=== PATIENT | female | born 1980 | race Caucasian/White ===

== ENCOUNTER 2019-12-15 18:18 | Emergency (ER) | payer OTHER ==
[2019-12-15 18:31] VITALS: RESP 18; TEMP 98.8
--- NOTE | 2019-12-15 20:04 | ED ---
General Adult HPI - General Chief complaint: GI Bleed Stated complaint: abd pain/rectal bleeding Time Seen by Provider: 12/15/19 19:38 Source: patient, RN notes reviewed Mode of arrival: ambulatory Limitations: no limitations - History of Present Illness Initial comments: 39-year-old female presents to the emergency room for a chief complaint of rectal bleeding. Patient reports that for the past 2-3 days she has had a couple episodes of bright red blood in the toilet bowl after having a bowel movement. Patient reports about a week ago she started to have burning in her rectum with bowel movements. Patient does report she has a hemorrhoid. Patient denies any associated abdominal pain whatsoever. She does admit to slight nausea and did have one episode of diarrhea today. She does not have any fevers or chills. Patient has no other complaints at this time including shortness of breath, chest pain, abdominal pain, vomiting, headache, or visual changes. - Related Data Home Medications Medication Instructions Recorded Confirmed Omeprazole 20 mg PO BID 11/15/15 12/15/19 Allergies Allergy/AdvReac Type Severity Reaction Status Date / Time No Known Allergies Allergy Verified 12/15/19 20:30 Review of Systems ROS Statement: Those systems with pertinent positive or pertinent negative responses have been documented in the HPI. ROS Other: All systems not noted in ROS Statement are negative. Past Medical History Past Medical History: GERD/Reflux Additional Past Medical History / Comment(s): chronic back pain, carpal tunnel History of Any Multi-Drug Resistant Organisms: None Reported Past Surgical History: Section, Cholecystectomy Additional Past Surgical History / Comment(s): rt hip Past Anesthesia/Blood Transfusion Reactions: No Reported Reaction Past Psychological History: No Psychological Hx Reported Smoking Status: Never smoker Past Alcohol Use History: Occasional Past Drug Use History: Marijuana - Past Family History Mother Family Medical History: No Reported History Father Family Medical History: No Reported History General Exam Limitations: no limitations General appearance: alert, in no apparent distress Head exam: Present: atraumatic, normocephalic, normal inspection Eye exam: Present: normal appearance, PERRL, EOMI. Absent: scleral icterus, conjunctival injection, periorbital swelling ENT exam: Present: normal exam, mucous membranes moist Neck exam: Present: normal inspection, full ROM. Absent: tenderness, meningismus, lymphadenopathy Respiratory exam: Present: normal lung sounds bilaterally. Absent: respiratory distress, wheezes, rales, rhonchi, stridor Cardiovascular Exam: Present: regular rate, normal rhythm, normal heart sounds. Absent: systolic murmur, diastolic murmur, rubs, gallop, clicks GI/Abdominal exam: Present: soft, normal bowel sounds. Absent: distended, tenderness (No abdominal tenderness), guarding, rebound, rigid Rectal exam: Present: hemorrhoids (Nonthrombosed hemorrhoids noted). Absent: bloody stool Course Vital Signs 12/15/19 18:27 Temperature 98.8 F Pulse Rate 86 Respiratory 18 Rate Blood Pressure 126/89 O2 Sat by Pulse 97 Oximetry Medical Decision Making - Medical Decision Making Vitals are stable. CBC unremarkable. Leukocytosis likely reactive. CMP is unremarkable. Urinalysis does not show any obvious evidence of infection. Occult blood is positive. Patient does not have any abdominal tenderness. Describes the blood as bright red. At this time patient is stable. I do recommend she follow up with GI for colonoscopy and further management however at this time does not require inpatient management. Patient is agreeable to this. She will return for any worsening symptoms which were discussed with her. - Lab Data Result diagrams: 12/15/19 20:10 12/15/19 20:10 Lab Results 12/15/19 12/15/19 12/15/19 Range/Units 20:10 20:10 20:10 WBC 12.0 H (3.8-10.6) k/uL RBC 5.15 (3.80-5.40) m/uL Hgb 14.9 (11.4-16.0) gm/dL Hct 44.6 (34.0-46.0) % MCV 86.5 (80.0-100.0) fL MCH 28.9 (25.0-35.0) pg MCHC 33.3 (31.0-37.0) g/dL RDW 12.9 (11.5-15.5) % Plt Count 304 (150-450) k/uL Neutrophils % 70 % Lymphocytes % 20 % Monocytes % 5 % Eosinophils % 2 % Basophils % 1 % Neutrophils # 8.4 H (1.3-7.7) k/uL Lymphocytes # 2.4 (1.0-4.8) k/uL Monocytes # 0.6 (0-1.0) k/uL Eosinophils # 0.3 (0-0.7) k/uL Basophils # 0.1 (0-0.2) k/uL Sodium (137-145) mmol/L Potassium (3.5-5.1) mmol/L Chloride (98-107) mmol/L Carbon Dioxide (22-30) mmol/L Anion Gap mmol/L BUN (7-17) mg/dL Creatinine (0.52-1.04) mg/dL Est GFR (CKD-EPI)AfAm (>60 ml/min/1.73 sqM) Est GFR (CKD-EPI)NonAf (>60 ml/min/1.73 sqM) Glucose (74-99) mg/dL Calcium (8.4-10.2) mg/dL Total Bilirubin (0.2-1.3) mg/dL AST (14-36) U/L ALT (4-34) U/L Alkaline Phosphatase (38-126) U/L Total Protein (6.3-8.2) g/dL Albumin (3.5-5.0) g/dL Urine Color Yellow Urine Appearance Clear (Clear) Urine pH 5.5 (5.0-8.0) Ur Specific [place] 1.027 (1.001-1.035) Urine Protein Negative (Negative) Urine Glucose (UA) Negative (Negative) Urine Ketones Negative (Negative) Urine Blood Trace H (Negative) Urine Nitrite Negative (Negative) Urine Bilirubin Negative (Negative) Urine Urobilinogen <2.0 (<2.0) mg/dL Ur Leukocyte Esterase Negative (Negative) Urine RBC 1 (0-5) /hpf Urine WBC 2 (0-5) /hpf Ur Squamous Epith Cells 3 (0-4) /hpf Urine Bacteria Rare H (None) /hpf Urine Mucus Many H (None) /hpf Urine HCG, Qual Not Detected (Not Detectd) Stool Occult Blood (Negative) 12/15/19 12/15/19 Range/Units 20:10 20:10 WBC (3.8-10.6) k/uL RBC (3.80-5.40) m/uL Hgb (11.4-16.0) gm/dL Hct (34.0-46.0) % MCV (80.0-100.0) fL MCH (25.0-35.0) pg MCHC (31.0-37.0) g/dL RDW (11.5-15.5) % Plt Count (150-450) k/uL Neutrophils % % Lymphocytes % % Monocytes % % Eosinophils % % Basophils % % Neutrophils # (1.3-7.7) k/uL Lymphocytes # (1.0-4.8) k/uL Monocytes # (0-1.0) k/uL Eosinophils # (0-0.7) k/uL Basophils # (0-0.2) k/uL Sodium 137 (137-145) mmol/L Potassium 4.8 (3.5-5.1) mmol/L Chloride 105 (98-107) mmol/L Carbon Dioxide 29 (22-30) mmol/L Anion Gap 3 mmol/L BUN 14 (7-17) mg/dL Creatinine 0.63 (0.52-1.04) mg/dL Est GFR (CKD-EPI)AfAm >90 (>60 ml/min/1.73 sqM) Est GFR (CKD-EPI)NonAf >90 (>60 ml/min/1.73 sqM) Glucose 97 (74-99) mg/dL Calcium 8.6 (8.4-10.2) mg/dL Total Bilirubin 0.7 (0.2-1.3) mg/dL AST 26 (14-36) U/L ALT 14 (4-34) U/L Alkaline Phosphatase 51 (38-126) U/L Total Protein 5.8 L (6.3-8.2) g/dL Albumin 3.4 L (3.5-5.0) g/dL Urine Color Urine Appearance (Clear) Urine pH (5.0-8.0) Ur Specific [place] (1.001-1.035) Urine Protein (Negative) Urine Glucose (UA) (Negative) Urine Ketones (Negative) Urine Blood (Negative) Urine Nitrite (Negative) Urine Bilirubin (Negative) Urine Urobilinogen (<2.0) mg/dL Ur Leukocyte Esterase (Negative) Urine RBC (0-5) /hpf Urine WBC (0-5) /hpf Ur Squamous Epith Cells (0-4) /hpf Urine Bacteria (None) /hpf Urine Mucus (None) /hpf Urine HCG, Qual (Not Detectd) Stool Occult Blood Positive H (Negative) Disposition Clinical Impression: Rectal bleeding Narrative: stable vitals and hemoglobin Disposition: HOME SELF-CARE Condition: Good Instructions (If sedation given, give patient instructions): Gastrointestinal Bleeding (ED) Additional Instructions: Please follow-up with your doctor in one to 2 days. Follow up with GI as well as you may require a colonoscopy. Return to the emergency room for worsening symptoms such as severe worsening bleeding or symptoms such as lightheadedness or passing out. Is patient prescribed a controlled substance at d/c from ED?: No Referrals: Srinivasa Tapia MD [Primary Care Provider] - 1-2 days Aly Hale MD [STAFF PHYSICIAN] - 1-2 days Time of Disposition: 21:20
[2019-12-15 20:34] LABS: Basophils # (A) 0.1 k/uL (0-0.2); Basophils % (A) 1 %; Eosinophils # (A) 0.3 k/uL (0-0.7); Eosinophils % (A) 2 %; HCT 44.6 % (34.0-46.0); HGB 14.9 gm/dL (11.4-16.0); Lymphocytes # (A) 2.4 k/uL (1.0-4.8); Lymphocytes % (A) 20 %; MCH 28.9 pg (25.0-35.0); MCHC 33.3 g/dL (31.0-37.0); MCV 86.5 fL (80.0-100.0); Mean Platelet Volume 6.8; Monocytes # (A) 0.6 k/uL (0-1.0); Monocytes % (A) 5 %; Neutrophils # (A) 8.4 k/uL (1.3-7.7); Neutrophils % (A) 70 %; Platelet Count 304 k/uL (150-450); RBC 5.15 m/uL (3.80-5.40); RDW 12.9 % (11.5-15.5)
[2019-12-15 20:35] LABS: Appearance,Urine Clear (Clear); Bacteria,Urine Rare /hpf; Bilirubin,Urine Negative (Negative); Blood,Urine Trace (Negative); Color,Urine Yellow; Glucose,Urine (UA) Negative (Negative); Ketones,Urine Negative (Negative); Leukocyte Esterase,Urine Negative (Negative); Mucus,Urine Many /hpf; Nitrite,Urine Negative (Negative); PH, Urine 5.5 (5.0-8.0); Protein,Urine Negative (Negative); RBC,Urine 1 /hpf (0-5); Specific Gravity,Urine 1.027 (1.001-1.035); Squamous Epithelial Cell,Urine 3 /hpf (0-4); Urobilinogen,Urine <2.0 mg/dL (<2.0); WBC,Urine 2 /hpf (0-5)
[2019-12-15 20:40] LABS: ALT 14 U/L (4-34); AST 26 U/L (14-36); African American GFR (CKD) >90 (>60 ml/min/1.73 sqM); Albumin 3.4 g/dL (3.5-5.0); Alkaline Phosphatase 51 U/L (38-126); Anion Gap 3 mmol/L; Blood Urea Nitrogen 14 mg/dL (7-17); Calcium 8.6 mg/dL (8.4-10.2); Carbon Dioxide 29 mmol/L (22-30); Chloride 105 mmol/L (98-107); Glucose 97 mg/dL (74-99); Non-African American GFR(CKD) >90 (>60 ml/min/1.73 sqM); Potassium 4.8 mmol/L (3.5-5.1); Sodium 137 mmol/L (137-145); Total Bilirubin 0.7 mg/dL (0.2-1.3); Total Protein 5.8 g/dL (6.3-8.2)
[2019-12-15 21:38] VITALS: BP 124/90; PULSE 72
== END 2019-12-15 21:39 | disposition home or self-care (01) ==
LOC: EC 18:18
DX: K62.5 Hemorrhage of anus and rectum (principal); K21.9 Gastro-esophageal reflux disease without esophagitis; Z79.899 Other long term (current) drug therapy
CPT/HCPCS: 36415; 80053; 81001; 81025; 82272; 85025; 99283

== ENCOUNTER 2020-02-02 10:23 | Day surgery (SDC) | payer OTHER ==
[2020-01-28 11:50] VITALS: BMI 46.5
[~2020-02-02 10:23] MED LIST: LACTATED RINGERS 1,000 ML IV SCH
[2020-02-02 10:55] VITALS: RESP 16; TEMP 97.3
[2020-02-02] MEDS ORDERED: LIDOCAINE 1% (10MG/ML) FOR IV START INTRADERMA ONE (10:55)
[2020-02-02] MEDS ORDERED: PROPOFOL 10 MG/ML 20 ML VIAL IV ONE (11:19)
--- NOTE | 2020-02-02 11:49 | P.PCN ---
Date of Procedure: 02/02/20 Description of Procedure: BRIEF HISTORY: Patient is a 39-year-old female presenting for outpatient colonoscopy for evaluation of rectal bleed. The patient reports intermittent rectal bleeding in the past but had 7 days of straight bleeding. She denies abdominal pain or change in bowel habits. No family history of colon cancer. PROCEDURE PERFORMED: Colonoscopy. PREOPERATIVE DIAGNOSIS: Rectal bleed, no prior colonoscopy. ESTIMATED BLOOD LOSS: Minimal. IV sedation per Anesthesia. PROCEDURE: After informed consent was obtained, the patient, was brought into the endoscopy unit. IV sedation was administered by Anesthesia under continuous monitoring. Digital rectal examination was normal. Initially the Olympus CF-190 flexible video colonoscope was then inserted in the rectum, gradually advanced into the cecum without any difficulty. Careful examination was performed as the scope was gradually being withdrawn. Ileocecal valve and the appendiceal orifice were visualized and appeared normal. Prep was excellent. Mucosa of the cecum, ascending colon, transverse colon, descending colon, sigmoid colon, and rectum appeared normal. Retroflexion was performed in the rectum and no lesions were seen, low-grade internal hemorrhoids noted. The patient tolerated the procedure well. IMPRESSION: Normal-appearing colon from rectum to cecum. Internal hemorrhoids. RECOMMENDATIONS: Findings of this examination were discussed with the patient. Okay to resume diet. Okay to resume medications. Recommendation is for local hemorrhoidal care if further bleeding including sitz baths, Tucks pads, and topical treatment with Preparation H or other formulation.
[2020-02-02 12:10] VITALS: BP 115/54; PULSE 67
== END 2020-02-02 12:50 ==
LOC: ORWHC2ENDO 10:23
PROVIDERS: ATTEND Internal Medicine
DX: K64.8 Other hemorrhoids (principal); K62.5 Hemorrhage of anus and rectum
CPT/HCPCS: 81025; 45378; J2704

== ENCOUNTER 2020-02-04 10:55 | Emergency (ER) | payer OTHER ==
[2020-02-04 11:06] VITALS: RESP 18
--- NOTE | 2020-02-04 12:42 | ED ---
Upper Extremity HPI - General Chief Complaint: Extremity Injury, Upper Stated Complaint: L Arm Pain Time Seen by Provider: 02/04/20 11:09 Source: patient Mode of arrival: ambulatory Limitations: no limitations - History of Present Illness Initial Comments: 39-year-old feel presenting today for chief complaint of bruising pain near plasma donation site. Patient states she has had bicep pain just proximal to where she had donated plasma. Patient states she's extensive bruising she states this never happened before. She denies redness fevers. Patient denies any direct traumas or injury patient denies history of blood clots denies additional complaints denies chest pain source of breath. Patient appears well nontoxic distress on arrival. - Related Data Home Medications Medication Instructions Recorded Confirmed Omeprazole 20 mg PO DAILY PRN 11/15/15 02/04/20 Cannabidiol (Cbd) [Epidiolex] 1 dose PO DAILY PRN 01/28/20 02/04/20 Cetirizine HCl [Zyrtec] 10 mg PO DAILY 01/28/20 02/04/20 Allergies Allergy/AdvReac Type Severity Reaction Status Date / Time No Known Allergies Allergy Verified 02/04/20 11:39 Review of Systems ROS Statement: Those systems with pertinent positive or pertinent negative responses have been documented in the HPI. ROS Other: All systems not noted in ROS Statement are negative. Past Medical History Past Medical History: GERD/Reflux, GI Bleed Additional Past Medical History / Comment(s): chronic back pain, carpal tunnel, itchiness of skin recently History of Any Multi-Drug Resistant Organisms: None Reported Past Surgical History: Section, Cholecystectomy, Orthopedic Surgery, Tubal Ligation Additional Past Surgical History / Comment(s): rt hip cyst and part of hip bone removed. C/S-3 Past Anesthesia/Blood Transfusion Reactions: No Reported Reaction, Motion Sickness Additional Past Anesthesia/Blood Transfusion Reaction / Comment(s): 2nd C/S difficulty breathing had epidural Past Psychological History: Anxiety Smoking Status: Vaper Past Alcohol Use History: Occasional Past Drug Use History: Marijuana - Past Family History Mother Family Medical History: No Reported History Father Family Medical History: No Reported History General Exam - General Exam Comments Initial Comments: General: The patient is awake and alert, in no distress, and does not appear acutely ill. Eye: Pupils are equal, round and reactive to light, extra-ocular movements are intact. No nystagmus. There is normal conjunctiva bilaterally. No signs of icterus. Cardiovascular: There is a regular rate and rhythm. No murmur, rub or gallop is appreciated. Respiratory: Lungs are clear to auscultation, respirations are non-labored, breath sounds are equal. No wheezes, stridor, rales, or rhonchi. Musculoskeletal: Normal ROM, no tenderness. Strength 5/5. Sensation intact. Radial pulses equal bilaterally 2+. Neurological: A&O x 3. CN II-XII intact grossly, There are no obvious motor or sensory deficits. Coordination appears grossly intact. Speech is normal. Skin: Skin is warm and dry and no rashes. ecchymosis roughly 10x 5cm irregular shape on the left popliteal fossa medially, some tenderness and palpable lump slightly more proximal. not rope like, no redness. tender to touch./ Psychiatric: Cooperative, appropriate mood & affect, normal judgment. Limitations: no limitations Course Vital Signs 02/04/20 10:59 Temperature 98.3 F Pulse Rate 68 Respiratory 18 Rate Blood Pressure 126/76 O2 Sat by Pulse 98 Oximetry Medical Decision Making - Medical Decision Making US (-) DVT. exam consistent with ecchymosis. no injury. pt may appply warm compresses and f/u with pcp. patient agreeable to care plan and discharge. Disposition Clinical Impression: Left arm pain, Left arm swelling, Ecchymosis Disposition: HOME SELF-CARE Condition: Good Instructions (If sedation given, give patient instructions): Ecchymosis (ED) Additional Instructions: Please use medication as discussed. Please follow-up with family doctor in the next 2 days. Please return to emergency room if the symptoms increase or worsen or for any other concerns. Is patient prescribed a controlled substance at d/c from ED?: No Referrals: Srinivasa Tapia MD [Primary Care Provider] - 1-2 days Time of Disposition: 12:42
--- NOTE | 2020-02-04 12:44 | US ---
EXAMINATION TYPE: US venous doppler duplex UE LT DATE OF EXAM: 02/04/2020 COMPARISON: NONE CLINICAL HISTORY: 39-year-old female swelling pain, mid bicep. Patient stated had plasma drawn left b rachial fossa 01/31/20 and c/o left upper arm pain anterior location SIDE PERFORMED: left TECHNIQUE: Grayscale, color doppler, spectral doppler imaging performed of the deep veins of the upp er extremities. Findings: Left Arm: There is normal flow, compressibility and vascular waveforms. Negative for DVT. Negative for SVT. No fluid collection is observed at left brachial fossa. IMPRESSION: No evidence for DVT within the left upper extremity. No abnormal fluid collection identified within the left brachial fossa.
[2020-02-04 12:57] VITALS: BP 120/70; PULSE 70; TEMP 98.2
== END 2020-02-04 12:55 | disposition home or self-care (01) ==
LOC: EC 10:55
DX: S40.022A Contusion of left upper arm, initial encounter (principal); K21.9 Gastro-esophageal reflux disease without esophagitis; F17.290 Nicotine dependence, other tobacco product, uncomplicated; Z79.899 Other long term (current) drug therapy; X58.XXXA Exposure to other specified factors, initial encounter
CPT/HCPCS: 99283

== ENCOUNTER 2020-04-09 16:43 | Emergency (ER) | payer OTHER ==
[2020-04-09] MEDS ORDERED: HYDROmorphone 0.5 MG/0.5 ML SYRINGE IVP STA (17:24)
[2020-04-09] MEDS ORDERED: SODIUM CHLORIDE 0.9% 1,000 ML IV STA (17:24)
[2020-04-09] MEDS ORDERED: ONDANSETRON 4 MG/2 ML VIAL IVP STA (17:24)
[2020-04-09] MEDS ORDERED: SODIUM CHLORIDE 0.9% 500 ML 500 ML IV STA (17:24)
--- NOTE | 2020-04-09 17:50 | ED ---
Abdominal Pain HPI - General Chief Complaint: Abdominal Pain Stated Complaint: Abd pain Time Seen by Provider: 04/09/20 17:10 Source: patient, RN notes reviewed Mode of arrival: ambulatory Limitations: no limitations - History of Present Illness Initial Comments: 39-year-old female presents emergency Department chief complaint abdominal pain. Patient states that she had some pain in the right lower quadrant last night but has worsened today and radiates across her abdomen today. Patient states is worse when she sits forward or moves. Patient denies any back pain denies chest pain shortness breath or chills dysuria hematuria diarrhea constipation. Patient had a prior cholecystectomy years ago. Patient states that she is stressed medication were no relief. - Related Data Home Medications Medication Instructions Recorded Confirmed Omeprazole 20 mg PO DAILY PRN 11/15/15 04/09/20 Cetirizine HCl [Zyrtec] 10 mg PO DAILY 01/28/20 04/09/20 busPIRone HCL [Buspar] 7.5 mg PO BID PRN 04/09/20 04/09/20 Previous Rx's Medication Instructions Recorded Cephalexin [Keflex] 500 mg PO Q8HR #21 cap 04/09/20 Ondansetron Odt [Zofran Odt] 4 mg PO Q8HR PRN #10 tab 04/09/20 Allergies Allergy/AdvReac Type Severity Reaction Status Date / Time No Known Allergies Allergy Verified 04/09/20 16:47 Review of Systems ROS Statement: Those systems with pertinent positive or pertinent negative responses have been documented in the HPI. ROS Other: All systems not noted in ROS Statement are negative. Past Medical History Past Medical History: GERD/Reflux, GI Bleed Additional Past Medical History / Comment(s): chronic back pain, carpal tunnel, itchiness of skin recently History of Any Multi-Drug Resistant Organisms: None Reported Past Surgical History: Section, Cholecystectomy, Orthopedic Surgery, Tubal Ligation Additional Past Surgical History / Comment(s): rt hip cyst and part of hip bone removed. C/S-3 Past Anesthesia/Blood Transfusion Reactions: No Reported Reaction, Motion Sickness Additional Past Anesthesia/Blood Transfusion Reaction / Comment(s): 2nd C/S difficulty breathing had epidural Past Psychological History: Anxiety Smoking Status: Vaper Past Alcohol Use History: Occasional Past Drug Use History: Marijuana - Past Family History Mother Family Medical History: No Reported History Father Family Medical History: No Reported History General Exam Limitations: no limitations General appearance: alert, in no apparent distress Head exam: Present: atraumatic, normocephalic, normal inspection Eye exam: Present: normal appearance, PERRL, EOMI. Absent: scleral icterus, conjunctival injection, periorbital swelling ENT exam: Present: normal exam, normal oropharynx, mucous membranes moist Neck exam: Present: normal inspection, full ROM. Absent: tenderness, meningismus, lymphadenopathy Respiratory exam: Present: normal lung sounds bilaterally. Absent: respiratory distress, wheezes, rales, rhonchi, stridor Cardiovascular Exam: Present: regular rate, normal rhythm, normal heart sounds. Absent: systolic murmur, diastolic murmur, rubs, gallop, clicks GI/Abdominal exam: Present: soft, tenderness (Moderate right lower to right a bdominal tenderness), normal bowel sounds. Absent: distended, guarding, rebound, rigid Back exam: Absent: CVA tenderness (R), CVA tenderness (L) Neurological exam: Present: alert, oriented X3 Skin exam: Present: warm, dry, intact, normal color. Absent: rash Course Vital Signs 04/09/20 04/09/20 16:45 19:06 Temperature 98.1 F Pulse Rate 99 Respiratory 20 18 Rate Blood Pressure 150/78 O2 Sat by Pulse 100 Oximetry Medical Decision Making - Medical Decision Making Labs review shows evidence of leukocytosis, small amount on Bactrim blood and urinalysis. CT of abdomen shows normal No acute abdomen otherwise. Patient doesn't smoke or flank pain. There is no evidence of stone. Questionable inf ection. Patient states she feels. Improved after fluids. Patient will be discharged in stable condition return parameters discussed. - Lab Data Result diagrams: 04/09/20 18:25 04/09/20 18:25 Lab Results 04/09/20 04/09/20 04/09/20 Range/Units 17:49 18:25 18:25 WBC 14.7 H (3.8-10.6) k/uL RBC 3.93 (3.80-5.40) m/uL Hgb 11.6 (11.4-16.0) gm/dL Hct 33.3 L (34.0-46.0) % MCV 84.9 (80.0-100.0) fL MCH 29.4 (25.0-35.0) pg MCHC 34.7 (31.0-37.0) g/dL RDW 12.8 (11.5-15.5) % Plt Count 257 (150-450) k/uL MPV 6.8 Neutrophils % 87 % Lymphocytes % 6 % Monocytes % 4 % Eosinophils % 2 % Basophils % 0 % Neutrophils # 12.9 H (1.3-7.7) k/uL Lymphocytes # 0.9 L (1.0-4.8) k/uL Monocytes # 0.6 (0-1.0) k/uL Eosinophils # 0.3 (0-0.7) k/uL Basophils # 0.0 (0-0.2) k/uL Sodium 137 (137-145) mmol/L Potassium 3.9 (3.5-5.1) mmol/L Chloride 106 (98-107) mmol/L Carbon Dioxide 24 (22-30) mmol/L Anion Gap 7 mmol/L BUN 11 (7-17) mg/dL Creatinine 0.52 (0.52-1.04) mg/dL Est GFR (CKD-EPI)AfAm >90 (>60 ml/min/1.73 sqM) Est GFR (CKD-EPI)NonAf >90 (>60 ml/min/1.73 sqM) Glucose 93 (74-99) mg/dL Plasma Lactic Acid [place] (0.7-2.0) mmol/L Calcium 8.4 (8.4-10.2) mg/dL Total Bilirubin 1.2 (0.2-1.3) mg/dL AST 38 H (14-36) U/L ALT 31 (4-34) U/L Alkaline Phosphatase 78 (38-126) U/L Total Protein 6.3 (6.3-8.2) g/dL Albumin 3.7 (3.5-5.0) g/dL Amylase 47 (30-110) U/L Lipase 55 (23-300) U/L Urine Color Yellow Urine Appearance Cloudy H (Clear) Urine pH 5.5 (5.0-8.0) Ur Specific [place] 1.033 (1.001-1.035) Urine Protein Trace H (Negative) Urine Glucose (UA) Negative (Negative) Urine Ketones 1+ H (Negative) Urine Blood Trace H (Negative) Urine Nitrite Negative (Negative) Urine Bilirubin Negative (Negative) Urine Urobilinogen 2.0 (<2.0) mg/dL Ur Leukocyte Esterase Large H (Negative) Urine RBC 6 H (0-5) /hpf Urine WBC 4 (0-5) /hpf Ur Squamous Epith Cells 7 H (0-4) /hpf Urine Bacteria Rare H (None) /hpf Urine Mucus Many H (None) /hpf 04/09/20 Range/Units 18:25 WBC (3.8-10.6) k/uL RBC (3.80-5.40) m/uL Hgb (11.4-16.0) gm/dL Hct (34.0-46.0) % MCV (80.0-100.0) fL MCH (25.0-35.0) pg MCHC (31.0-37.0) g/dL RDW (11.5-15.5) % Plt Count (150-450) k/uL MPV Neutrophils % % Lymphocytes % % Monocytes % % Eosinophils % % Basophils % % Neutrophils # (1.3-7.7) k/uL Lymphocytes # (1.0-4.8) k/uL Monocytes # (0-1.0) k/uL Eosinophils # (0-0.7) k/uL Basophils # (0-0.2) k/uL Sodium (137-145) mmol/L Potassium (3.5-5.1) mmol/L Chloride (98-107) mmol/L Carbon Dioxide (22-30) mmol/L Anion Gap mmol/L BUN (7-17) mg/dL Creatinine (0.52-1.04) mg/dL Est GFR (CKD-EPI)AfAm (>60 ml/min/1.73 sqM) Est GFR (CKD-EPI)NonAf (>60 ml/min/1.73 sqM) Glucose (74-99) mg/dL Plasma Lactic Acid [place] 0.7 (0.7-2.0) mmol/L Calcium (8.4-10.2) mg/dL Total Bilirubin (0.2-1.3) mg/dL AST (14-36) U/L ALT (4-34) U/L Alkaline Phosphatase (38-126) U/L Total Protein (6.3-8.2) g/dL Albumin (3.5-5.0) g/dL Amylase (30-110) U/L Lipase (23-300) U/L Urine Color Urine Appearance (Clear) Urine pH (5.0-8.0) Ur Specific [place] (1.001-1.035) Urine Protein (Negative) Urine Glucose (UA) (Negative) Urine Ketones (Negative) Urine Blood (Negative) Urine Nitrite (Negative) Urine Bilirubin (Negative) Urine Urobilinogen (<2.0) mg/dL Ur Leukocyte Esterase (Negative) Urine RBC (0-5) /hpf Urine WBC (0-5) /hpf Ur Squamous Epith Cells (0-4) /hpf Urine Bacteria (None) /hpf Urine Mucus (None) /hpf Disposition Clinical Impression: Hematuria, Abdominal pain Disposition: HOME SELF-CARE Condition: Stable Instructions (If sedation given, give patient instructions): Abdominal Pain (ED) Additional Instructions: Please return to the Emergency Department if symptoms worsen or any other concerns. Prescriptions: Cephalexin [Keflex] 500 mg PO Q8HR #21 cap Ondansetron Odt [Zofran Odt] 4 mg PO Q8HR PRN #10 tab PRN Reason: Nausea Is patient prescribed a controlled substance at d/c from ED?: No Referrals: Srinivasa Tapia MD [Primary Care Provider] - 1-2 days Time of Disposition: 20:24
[2020-04-09 18:08] LABS: Appearance,Urine Cloudy (Clear); Bacteria,Urine Rare /hpf; Bilirubin,Urine Negative (Negative); Blood,Urine Trace (Negative); Color,Urine Yellow; Glucose,Urine (UA) Negative (Negative); Ketones,Urine 1+ (Negative); Leukocyte Esterase,Urine Large (Negative); Mucus,Urine Many /hpf; Nitrite,Urine Negative (Negative); PH, Urine 5.5 (5.0-8.0); Protein,Urine Trace (Negative); RBC,Urine 6 /hpf (0-5); Specific Gravity,Urine 1.033 (1.001-1.035); Squamous Epithelial Cell,Urine 7 /hpf (0-4); WBC,Urine 4 /hpf (0-5)
[2020-04-09 18:36] LABS: Basophils % (A) 0 %; Eosinophils # (A) 0.3 k/uL (0-0.7); Eosinophils % (A) 2 %; HCT 33.3 % (34.0-46.0); HGB 11.6 gm/dL (11.4-16.0); Lymphocytes # (A) 0.9 k/uL (1.0-4.8); Lymphocytes % (A) 6 %; MCH 29.4 pg (25.0-35.0); MCHC 34.7 g/dL (31.0-37.0); MCV 84.9 fL (80.0-100.0); Mean Platelet Volume 6.8; Monocytes # (A) 0.6 k/uL (0-1.0); Monocytes % (A) 4 %; Neutrophils # (A) 12.9 k/uL (1.3-7.7); Neutrophils % (A) 87 %; Platelet Count 257 k/uL (150-450); RBC 3.93 m/uL (3.80-5.40); RDW 12.8 % (11.5-15.5); WBC 14.7 k/uL (3.8-10.6)
[2020-04-09 18:49] LABS: ALT 31 U/L (4-34); AST 38 U/L (14-36); African American GFR (CKD) >90 (>60 ml/min/1.73 sqM); Albumin 3.7 g/dL (3.5-5.0); Alkaline Phosphatase 78 U/L (38-126); Amylase 47 U/L (30-110); Anion Gap 7 mmol/L; Blood Urea Nitrogen 11 mg/dL (7-17); Calcium 8.4 mg/dL (8.4-10.2); Carbon Dioxide 24 mmol/L (22-30); Chloride 106 mmol/L (98-107); Glucose 93 mg/dL (74-99); Lipase 55 U/L (23-300); Non-African American GFR(CKD) >90 (>60 ml/min/1.73 sqM); Potassium 3.9 mmol/L (3.5-5.1); Sodium 137 mmol/L (137-145); Total Bilirubin 1.2 mg/dL (0.2-1.3); Total Protein 6.3 g/dL (6.3-8.2)
--- NOTE | 2020-04-09 19:46 | CT ---
EXAMINATION TYPE: CT abdomen pelvis w con DATE OF EXAM: 04/09/2020 COMPARISON: None HISTORY: Generalized abdominal pain. CT DLP: 2289 mGycm Automated exposure control for dose reduction was used. CONTRAST: Performed with IV Contrast, patient injected with 100 mL of Isovue M300. Images obtained from the diaphragm to the floor the pelvis with IV contrast. Lung bases are clear. There is no pleural effusion. Stomach is intact. There are clips from cholecyst ectomy. Liver and spleen are intact. The bile ducts are not dilated. There is no pancreatic mass. There is no adrenal mass. Kidneys show satisfactory contrast opacification. There is no hydronephrosi s. Delayed images show normal renal excretion. Appendix is posterior and appears normal. There is no retroperitoneal adenopathy. There is no evidence of renal mass. Bladder distends smoothly. There is n o inguinal hernia. Uterus is anteverted. There is no free fluid in the pelvis. There is no evidence of pelvic mass. There is no mesenteric edema. There is no ascites or free air. There is no bowel obstruction. Intesti nal gas pattern is normal. Lumbar vertebra have normal alignment. Disc spaces are fairly normal. Ther e is no compression fracture. The bony pelvis is intact. IMPRESSION: Negative CT scan abdomen pelvis. Normal appendix.
[2020-04-09] MEDS ORDERED: cefTRIAXone IN SWFI 1,000 MG/10 ML SYRINGE IVP STA (20:23)
[2020-04-09] MEDS ORDERED: ACET/COD 300 MG/30 MG STARTER PACK 6 TAB BTL PO STA (20:25)
[2020-04-09 20:39] VITALS: BP 128/77; PULSE 106; RESP 16; TEMP 102.5
[2020-04-09] MEDS ORDERED: KETOROLAC 15 MG/ML 1 ML VIAL IVP STA (20:40)
== END 2020-04-09 20:58 | disposition home or self-care (01) ==
LOC: EC 16:43
DX: R31.9 Hematuria, unspecified (principal); D72.829 Elevated white blood cell count, unspecified; K21.9 Gastro-esophageal reflux disease without esophagitis; F12.90 Cannabis use, unspecified, uncomplicated; F41.9 Anxiety disorder, unspecified; Z90.49 Acquired absence of other specified parts of digestive tract; Z98.51 Tubal ligation status
CPT/HCPCS: 36415; 80053; 82150; 83605; 83690; 85025; 81001; 74177; 99284; 96374; 96375; J2405; J0696; J1885; J1170; Q9967

== ENCOUNTER 2020-07-08 11:16 | Emergency (ER) | payer OTHER ==
[2020-07-08 11:37] VITALS: BP 127/76; PULSE 63; TEMP 97.9
[2020-07-08 12:16] VITALS: RESP 18
[2020-07-08] MEDS ORDERED: FLUTICASONE 50MCG/SPRAY NASAL 16GM EA NOSTRIL STA (12:31)
--- NOTE | 2020-07-08 13:07 | ED ---
URI HPI - General Chief Complaint: Upper Respiratory Infection Stated Complaint: Sinus infection Time Seen by Provider: 07/08/20 12:14 Source: patient, RN notes reviewed Mode of arrival: ambulatory Limitations: no limitations - History of Present Illness Initial Comments: Patient is a 39-year-old female that presents to emergency room complaining of sinus congestion, chest congestion with yellow mucus production. She notes that she does have ALLERGIES and is currently on an ALLERGY medication. She notes that she hasn't been to the emergency room once prior for this similar issue. She notes that they diagnosed with a sinus infection. He stated that her symptoms really been going on for approximately one week. She denied any fevers sinus tenderness sore throat. She was in no apparent distress or pain while laying in bed during the exam interview. She denied chest pain shortness breath headache nausea vomiting diarrhea constipation fatigue chills. - Related Data Home Medications Medication Instructions Recorded Confirmed Omeprazole 20 mg PO DAILY PRN 11/15/15 04/09/20 Cetirizine HCl [Zyrtec] 10 mg PO DAILY 01/28/20 04/09/20 busPIRone HCL [Buspar] 7.5 mg PO BID PRN 04/09/20 04/09/20 Previous Rx's Medication Instructions Recorded Cephalexin [Keflex] 500 mg PO Q8HR #21 cap 04/09/20 Ondansetron Odt [Zofran Odt] 4 mg PO Q8HR PRN #10 tab 04/09/20 Allergies Allergy/AdvReac Type Severity Reaction Status Date / Time No Known Allergies Allergy Verified 07/08/20 11:36 Review of Systems ROS Statement: Those systems with pertinent positive or pertinent negative responses have been documented in the HPI. ROS Other: All systems not noted in ROS Statement are negative. Past Medical History Past Medical History: GERD/Reflux, GI Bleed Additional Past Medical History / Comment(s): chronic back pain, carpal tunnel, itchiness of skin recently History of Any Multi-Drug Resistant Organisms: None Reported Past Surgical History: Section, Cholecystectomy, Orthopedic Surgery, Tubal Ligation Additional Past Surgical History / Comment(s): rt hip cyst and part of hip bone removed. C/S-3 Past Anesthesia/Blood Transfusion Reactions: No Reported Reaction, Motion Sickness Additional Past Anesthesia/Blood Transfusion Reaction / Comment(s): 2nd C/S difficulty breathing had epidural Past Psychological History: Anxiety Smoking Status: Vaper Past Alcohol Use History: Occasional Past Drug Use History: Marijuana - Past Family History Mother Family Medical History: No Reported History Father Family Medical History: No Reported History General Exam Limitations: no limitations General appearance: alert, in no apparent distress, obese Head exam: Present: atraumatic, normocephalic, normal inspection Eye exam: Present: normal appearance, PERRL, EOMI. Absent: scleral icterus, conjunctival injection, periorbital swelling ENT exam: Present: normal exam, mucous membranes moist Neck exam: Present: normal inspection Respiratory exam: Present: normal lung sounds bilaterally. Absent: respiratory distress, wheezes, rales, rhonchi, stridor Cardiovascular Exam: Present: regular rate, normal rhythm, normal heart sounds. Absent: systolic murmur, diastolic murmur, rubs, gallop, clicks GI/Abdominal exam: Present: soft, normal bowel sounds. Absent: distended, tenderness, guarding, rebound, rigid Extremities exam: Present: normal inspection, full ROM, normal capillary refill. Absent: tenderness, pedal edema, joint swelling, calf tenderness Neurological exam: Present: alert, oriented X3, CN II-XII intact Psychiatric exam: Present: normal affect, normal mood Skin exam: Present: warm, dry, intact, normal color. Absent: rash Course Vital Signs 07/08/20 07/08/20 11:34 12:13 Temperature 97.9 F Pulse Rate 63 Respiratory 20 18 Rate Blood Pressure 127/76 O2 Sat by Pulse 98 Oximetry Medical Decision Making - Medical Decision Making 39-year-old female complaining of sinus and chest congestion with some yellow mucus production chest x-ray, basic labs, Flonase 2 sprays in each nostril, chest x-ray, Covid test ordered. Labs unremarkable. Case discussed with Dr. Franco, patient discharge home with conservative management for known follow-up primary care if symptoms persist past 10 days. - Lab Data Result diagrams: 07/08/20 12:49 07/08/20 12:49 Lab Results 07/08/20 07/08/20 07/08/20 Range/Units 12:49 12:49 12:49 WBC 8.8 (3.8-10.6) k/uL RBC 4.77 (3.80-5.40) m/uL Hgb 12.9 (11.4-16.0) gm/dL Hct 40.7 (34.0-46.0) % MCV 85.5 (80.0-100.0) fL MCH 27.1 (25.0-35.0) pg MCHC 31.7 (31.0-37.0) g/dL RDW 13.8 (11.5-15.5) % Plt Count 317 (150-450) k/uL MPV 6.7 Neutrophils % 72 % Lymphocytes % 20 % Monocytes % 5 % Eosinophils % 2 % Basophils % 0 % Neutrophils # 6.3 (1.3-7.7) k/uL Lymphocytes # 1.8 (1.0-4.8) k/uL Monocytes # 0.4 (0-1.0) k/uL Eosinophils # 0.2 (0-0.7) k/uL Basophils # 0.0 (0-0.2) k/uL Sodium 137 (137-145) mmol/L Potassium 4.5 (3.5-5.1) mmol/L Chloride 102 (98-107) mmol/L Carbon Dioxide 29 (22-30) mmol/L Anion Gap 6 mmol/L BUN 10 (7-17) mg/dL Creatinine 0.59 (0.52-1.04) mg/dL Est GFR (CKD-EPI)AfAm >90 (>60 ml/min/1.73 sqM) Est GFR (CKD-EPI)NonAf >90 (>60 ml/min/1.73 sqM) Glucose 93 (74-99) mg/dL Calcium 9.1 (8.4-10.2) mg/dL Urine Color Light Yellow Urine Appearance Clear (Clear) Urine pH 7.5 (5.0-8.0) Ur Specific [place] 1.016 (1.001-1.035) Urine Protein Negative (Negative) Urine Glucose (UA) Negative (Negative) Urine Ketones Negative (Negative) Urine Blood Negative (Negative) Urine Nitrite Negative (Negative) Urine Bilirubin Negative (Negative) Urine Urobilinogen <2.0 (<2.0) mg/dL Ur Leukocyte Esterase Negative (Negative) - Radiology Data Radiology results: report reviewed, image reviewed Chest x-ray: No acute cardiopulmonary process. Disposition Clinical Impression: Sinusitis Disposition: HOME SELF-CARE Condition: Stable Instructions (If sedation given, give patient instructions): Sinusitis (ED) Additional Instructions: Please return to the Emergency Department if symptoms worsen or any other conc erns. Follow-up primary care if symptoms persist past 10 days for potential antibiotic therapy. Currently no antibiotics needed as sinusitis is mostly viral and can be treated conservatively with nasal sprays, nasal decongestions, ALLERGY medication. Increase oral fluids. Is patient prescribed a controlled substance at d/c from ED?: No Referrals: Srinivasa Tapia MD [Primary Care Provider] - 1-2 days Time of Disposition: 13:44
[2020-07-08 13:23] LABS: Appearance,Urine Clear (Clear); Bilirubin,Urine Negative (Negative); Blood,Urine Negative (Negative); Color,Urine Light Yellow; Glucose,Urine (UA) Negative (Negative); Ketones,Urine Negative (Negative); Leukocyte Esterase,Urine Negative (Negative); Nitrite,Urine Negative (Negative); PH, Urine 7.5 (5.0-8.0); Protein,Urine Negative (Negative); Specific Gravity,Urine 1.016 (1.001-1.035); Urobilinogen,Urine <2.0 mg/dL (<2.0)
[2020-07-08 13:24] LABS: Basophils % (A) 0 %; Eosinophils # (A) 0.2 k/uL (0-0.7); Eosinophils % (A) 2 %; HCT 40.7 % (34.0-46.0); HGB 12.9 gm/dL (11.4-16.0); Lymphocytes # (A) 1.8 k/uL (1.0-4.8); Lymphocytes % (A) 20 %; MCH 27.1 pg (25.0-35.0); MCHC 31.7 g/dL (31.0-37.0); MCV 85.5 fL (80.0-100.0); Mean Platelet Volume 6.7; Monocytes # (A) 0.4 k/uL (0-1.0); Monocytes % (A) 5 %; Neutrophils # (A) 6.3 k/uL (1.3-7.7); Neutrophils % (A) 72 %; Platelet Count 317 k/uL (150-450); RBC 4.77 m/uL (3.80-5.40); RDW 13.8 % (11.5-15.5); WBC 8.8 k/uL (3.8-10.6)
--- NOTE | 2020-07-08 13:29 | XR ---
EXAMINATION TYPE: XR chest 2V DATE OF EXAM: 07/08/2020 COMPARISON: None INDICATION: Chest congestion upper respiratory tract infection TECHNIQUE: Frontal and lateral views of the chest are obtained. FINDINGS: The heart size is normal. The pulmonary vasculature is normal. The lungs are clear. IMPRESSION: 1. No acute pulmonary process.
[2020-07-08 13:32] LABS: African American GFR (CKD) >90 (>60 ml/min/1.73 sqM); Anion Gap 6 mmol/L; Blood Urea Nitrogen 10 mg/dL (7-17); Calcium 9.1 mg/dL (8.4-10.2); Carbon Dioxide 29 mmol/L (22-30); Chloride 102 mmol/L (98-107); Glucose 93 mg/dL (74-99); Non-African American GFR(CKD) >90 (>60 ml/min/1.73 sqM); Potassium 4.5 mmol/L (3.5-5.1); Sodium 137 mmol/L (137-145)
== END 2020-07-08 13:54 | disposition home or self-care (01) ==
LOC: EC 11:16
DX: J32.9 Chronic sinusitis, unspecified (principal); K21.9 Gastro-esophageal reflux disease without esophagitis; F12.90 Cannabis use, unspecified, uncomplicated; Z90.49 Acquired absence of other specified parts of digestive tract; Z98.51 Tubal ligation status
CPT/HCPCS: 36415; 71046; 80048; 81003; 85025; 87635; 99283

== ENCOUNTER 2020-07-20 12:02 | Emergency (ER) | payer OTHER ==
[2020-07-20 12:26] VITALS: BP 146/72; PULSE 62; RESP 18; TEMP 98.1
--- NOTE | 2020-07-20 13:34 | ED ---
Abdominal Pain HPI - General Chief Complaint: Extremity Problem,Nontraumatic Stated Complaint: Ankle pain Time Seen by Provider: 07/20/20 13:08 Source: patient, RN notes reviewed Mode of arrival: ambulatory Limitations: no limitations - History of Present Illness Initial Comments: 39-year-old female presents emergency Department with chief complaint of left ankle pain. Patient states his been vomiting for 1 week. No major injuries she states she does stand for long periods time at work on [employer]. Patient states is painful. Patient denies any paresthesias she's had prior sprains to her ankles and feels somewhat. - Related Data Home Medications Medication Instructions Recorded Confirmed Omeprazole 20 mg PO DAILY PRN 11/15/15 04/09/20 Cetirizine HCl [Zyrtec] 10 mg PO DAILY 01/28/20 04/09/20 busPIRone HCL [Buspar] 7.5 mg PO BID PRN 04/09/20 04/09/20 Previous Rx's Medication Instructions Recorded Cephalexin [Keflex] 500 mg PO Q8HR #21 cap 04/09/20 Ondansetron Odt [Zofran Odt] 4 mg PO Q8HR PRN #10 tab 04/09/20 Ibuprofen [Motrin] 600 mg PO Q8HR PRN #20 tab 07/20/20 Allergies Allergy/AdvReac Type Severity Reaction Status Date / Time No Known Allergies Allergy Verified 07/20/20 12:25 Review of Systems ROS Statement: Those systems with pertinent positive or pertinent negative responses have been documented in the HPI. ROS Other: All systems not noted in ROS Statement are negative. Past Medical History Past Medical History: GERD/Reflux, GI Bleed Additional Past Medical History / Comment(s): chronic back pain, carpal tunnel, itchiness of skin recently History of Any Multi-Drug Resistant Organisms: None Reported Past Surgical History: Section, Cholecystectomy, Orthopedic Surgery, Tubal Ligation Additional Past Surgical History / Comment(s): rt hip cyst and part of hip bone removed. C/S-3 Past Anesthesia/Blood Transfusion Reactions: No Reported Reaction, Motion Sickness Additional Past Anesthesia/Blood Transfusion Reaction / Comment(s): 2nd C/S difficulty breathing had epidural Past Psychological History: Anxiety Smoking Status: Never smoker Past Alcohol Use History: Occasional Past Drug Use History: Marijuana - Past Family History Mother Family Medical History: No Reported History Father Family Medical History: No Reported History General Exam Limitations: no limitations General appearance: alert, in no apparent distress Head exam: Present: atraumatic, normocephalic, normal inspection Respiratory exam: Present: normal lung sounds bilaterally. Absent: respiratory distress, wheezes, rales, rhonchi, stridor Cardiovascular Exam: Present: regular rate, normal rhythm, normal heart sounds. Absent: systolic murmur, diastolic murmur, rubs, gallop, clicks Extremities exam: Present: other (Left ankle is tenderness along the lateral malleoli region, pain with inversion and dorsiflexion, no laxity noted) Course Vital Signs 07/20/20 12:22 Temperature 98.1 F Pulse Rate 62 Respiratory 18 Rate Blood Pressure 146/72 O2 Sat by Pulse 99 Oximetry Medical Decision Making - Medical Decision Making 39 -year-old presented for ankle pain Patient's symptoms are consistent with ankle sprain. X-ray shows possible chip fracture though this is not the area of tenderness. Patient we discharged in stable condition return parameters discussed. Disposition Clinical Impression: Left ankle tendinitis Disposition: HOME SELF-CARE Condition: Stable Instructions (If sedation given, give patient instructions): Tendinitis (ED), Ankle Sprain (ED) Additional Instructions: Please return to the Emergency Department if symptoms worsen or any other concerns. Prescriptions: Ibuprofen [Motrin] 600 mg PO Q8HR PRN #20 tab PRN Reason: Pain Is patient prescribed a controlled substance at d/c from ED?: No Referrals: Srinivasa Tapia MD [Primary Care Provider] - 1-2 days Alfredo Rodríguez MD [STAFF PHYSICIAN] - 1-2 days Time of Disposition: 14:43
--- NOTE | 2020-07-20 14:36 | XR ---
Left ankle HISTORY: Pain for 1 week 3 views the left ankle Small ossific densities are present at the medial aspect of the ankle lateral to the medial malleolus . Alignment and joint spaces are maintained, bone mineralization is normal. Soft tissue swelling is n oted. There is a plantar calcaneal spur. No acute fracture or dislocation. IMPRESSION: No acute bone abnormality, there may be small loose bodies, remote chip fracture. Soft ti ssue swelling.
[2020-07-20] MEDS ORDERED: ACET/COD 300 MG/30 MG STARTER PACK 6 TAB BTL PO STA (14:43)
== END 2020-07-20 14:53 | disposition home or self-care (01) ==
LOC: EC 12:02
DX: M77.52 Other enthesopathy of left foot and ankle (principal); K21.9 Gastro-esophageal reflux disease without esophagitis; F41.9 Anxiety disorder, unspecified; F12.90 Cannabis use, unspecified, uncomplicated; Z79.1 Long term (current) use of non-steroidal anti-inflammatories (NSAID); Z79.899 Other long term (current) drug therapy
CPT/HCPCS: 99283; 73610; 29515; L4350

== ENCOUNTER 2021-05-18 10:38 | Emergency (ER) | payer OTHER ==
[2021-05-18 10:57] VITALS: BP 120/79; PULSE 61; TEMP 97.8
--- NOTE | 2021-05-18 11:30 | ED ---
URI HPI - General Chief Complaint: Upper Respiratory Infection Stated Complaint: Congestion Time Seen by Provider: 05/18/21 11:21 Source: patient, RN notes reviewed Mode of arrival: ambulatory Limitations: no limitations - History of Present Illness Initial Comments: 40-year-old female presents emergency Department chief complaint of cough congestion. patient states symptoms started 3 days ago with nasal congestion, sore throat. She's been having increasing symptoms including cough mostly in the morning. No reported fever. She does complain of a headache, facial pressure. - Related Data Home Medications Medication Instructions Recorded Confirmed Cetirizine HCl 10 mg PO DAILY 05/18/21 05/18/21 Omeprazole 20 mg PO DAILY 05/18/21 05/18/21 Tylenol Cold & Flu 2 cap PO Q4H PRN 05/18/21 05/18/21 Previous Rx's Medication Instructions Recorded Amoxicillin/Potassium Clav 1 tab PO Q12HR #20 tab 05/18/21 [Augmentin 875-125 Tablet] Allergies Allergy/AdvReac Type Severity Reaction Status Date / Time No Known Allergies Allergy Verified 05/18/21 11:58 Review of Systems ROS Statement: Those systems with pertinent positive or pertinent negative responses have been documented in the HPI. ROS Other: All systems not noted in ROS Statement are negative. Past Medical History Past Medical History: GERD/Reflux, GI Bleed Additional Past Medical History / Comment(s): chronic back pain, carpal tunnel, itchiness of skin recently History of Any Multi-Drug Resistant Organisms: None Reported Past Surgical History: Section, Cholecystectomy, Orthopedic Surgery, Tubal Ligation Additional Past Surgical History / Comment(s): rt hip cyst and part of hip bone removed. C/S-3 Past Anesthesia/Blood Transfusion Reactions: No Reported Reaction, Motion Sickness Additional Past Anesthesia/Blood Transfusion Reaction / Comment(s): 2nd C/S difficulty breathing had epidural Past Psychological History: Anxiety Smoking Status: Never smoker Past Alcohol Use History: Occasional Past Drug Use History: Marijuana - Past Family History Mother Family Medical History: No Reported History Father Family Medical History: No Reported History General Exam Limitations: no limitations General appearance: alert, in no apparent distress Head exam: Present: atraumatic, normocephalic, normal inspection Eye exam: Present: normal appearance, PERRL, EOMI. Absent: scleral icterus, conjunctival injection, periorbital swelling ENT exam: Present: normal exam, normal oropharynx, mucous membranes moist Neck exam: Present: normal inspection, full ROM. Absent: tenderness, meningismus, lymphadenopathy Respiratory exam: Present: normal lung sounds bilaterally. Absent: respiratory distress, wheezes, rales, rhonchi, stridor Cardiovascular Exam: Present: regular rate, normal rhythm, normal heart sounds. Absent: systolic murmur, diastolic murmur, rubs, gallop, clicks GI/Abdominal exam: Present: soft, normal bowel sounds. Absent: distended, tenderness, guarding, rebound, rigid Course Vital Signs 05/18/21 05/18/21 10:55 11:45 Temperature 97.8 F Pulse Rate 61 Respiratory 18 20 Rate Blood Pressure 120/79 O2 Sat by Pulse 99 Oximetry Medical Decision Making - Medical Decision Making Patient presented for URI symptoms. Patient chest x-rays unremarkable, negative COVID-19. Patient is afebrile. Patient has a blister infection we discharged stable condition return parameters were discussed. - Lab Data Lab Results 05/18/21 Range/Units 11:46 Coronavirus (PCR) Not Detected (Not Detectd) Disposition Clinical Impression: Acute upper respiratory infection Disposition: HOME SELF-CARE Condition: Stable Instructions (If sedation given, give patient instructions): Upper Respiratory Infection (ED) Additional Instructions: Please return to the Emergency Department if symptoms worsen or any other concerns. Prescriptions: Amoxicillin/Potassium Clav [Augmentin 875-125 Tablet] 1 tab PO Q12HR #20 tab Is patient prescribed a controlled substance at d/c from ED?: No Referrals: None,Stated [Primary Care Provider] - 1-2 days Time of Disposition: 12:23
[2021-05-18 12:02] VITALS: RESP 20
--- NOTE | 2021-05-18 12:17 | XR ---
EXAMINATION TYPE: XR chest 2V DATE OF EXAM: 05/18/2021 COMPARISON: 07/08/2020 TECHNIQUE: PA and lateral views submitted. HISTORY: Cough FINDINGS: The lungs are clear and there is no pneumothorax, pleural effusion, or focal pneumonia. Heart size mildly prominent. No overt failure. IMPRESSION: 1. No acute process.
== END 2021-05-18 12:39 | disposition home or self-care (01) ==
LOC: EC 10:38
DX: J06.9 Acute upper respiratory infection, unspecified (principal); F12.90 Cannabis use, unspecified, uncomplicated
CPT/HCPCS: 71046; 87635; 99283

== ENCOUNTER 2021-06-30 08:14 | Emergency (ER) | payer OTHER ==
[2021-06-30 08:28] VITALS: TEMP 97.5
[2021-06-30] MEDS ORDERED: KETOROLAC 15 MG/ML 1 ML VIAL IM STA (08:46)
[2021-06-30] MEDS ORDERED: TETRACAINE 0.5% OPHTH (PF) DROPS 4 ML BTL RIGHT EYE STA (08:46)
[2021-06-30] MEDS ORDERED: FLUORESCEIN STRIPS 1 MG STRIP RIGHT EYE ONE (09:52)
[2021-06-30 10:50] VITALS: BP 126/70; PULSE 65; RESP 18
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
== END 2021-06-30 10:47 | disposition home or self-care (01) ==
LOC: EC 08:14
DX: S05.01XA Injury of conjunctiva and corneal abrasion without foreign body, right eye, initial encounter (principal); K21.9 Gastro-esophageal reflux disease without esophagitis; F41.9 Anxiety disorder, unspecified; Z72.89 Other problems related to lifestyle; F12.90 Cannabis use, unspecified, uncomplicated; Z79.899 Other long term (current) drug therapy; W51.XXXA Accidental striking against or bumped into by another person, initial encounter
CPT/HCPCS: 99283; 96372; J1885

== ENCOUNTER 2021-07-22 11:50 | Emergency (ER) | payer OTHER ==
[2021-07-22 11:57] VITALS: BP 114/78; PULSE 103; RESP 18; TEMP 97.9
--- NOTE | 2021-07-22 12:57 | ED ---
General Adult HPI - General Chief complaint: Skin/Abscess/Foreign Body Stated complaint: Hemorrhoid pain Time Seen by Provider: 07/22/21 12:41 Source: patient, RN notes reviewed, old records reviewed Mode of arrival: ambulatory Limitations: no limitations - History of Present Illness Initial comments: 40-year-old female presenting for evaluation of hemorrhoids. She has increased pain. No bleeding. She states that none therefore at least 3 full days. She's had previous hemorrhoids and has had a colonoscopy without any reported abnormal findings. Abdominal pain. No bleeding. - Related Data Home Medications Medication Instructions Recorded Confirmed Cetirizine HCl 10 mg PO DAILY 05/18/21 06/30/21 Omeprazole 20 mg PO DAILY 05/18/21 06/30/21 Previous Rx's Medication Instructions Recorded Ciprofloxacin Ophth Soln [Ciloxan 2 drops RIGHT EYE Q4HR 5 Days #2.5 06/30/21 0.3% Ophth Soln] ml Ketorolac 0.5% Ophth Soln [Acular 1 drops RIGHT EYE QID 5 Days #3 ml 06/30/21 0.5%] Lidocaine [Lidocaine Rectal Cream 28 gm TP TID #28 gram 07/22/21 5%] Allergies Allergy/AdvReac Type Severity Reaction Status Date / Time No Known Allergies Allergy Verified 07/22/21 11:57 Review of Systems ROS Statement: Those systems with pertinent positive or pertinent negative responses have been documented in the HPI. ROS Other: All systems not noted in ROS Statement are negative. Past Medical History Past Medical History: GERD/Reflux, GI Bleed Additional Past Medical History / Comment(s): chronic back pain, carpal tunnel, itchiness of skin recently History of Any Multi-Drug Resistant Organisms: None Reported Past Surgical History: Section, Cholecystectomy, Orthopedic Surgery, Tubal Ligation Additional Past Surgical History / Comment(s): rt hip cyst and part of hip bone removed. C/S-3 Past Anesthesia/Blood Transfusion Reactions: No Reported Reaction, Motion Sickness Additional Past Anesthesia/Blood Transfusion Reaction / Comment(s): 2nd C/S difficulty breathing had epidural Past Psychological History: Anxiety Smoking Status: Never smoker Past Alcohol Use History: Occasional Past Drug Use History: Marijuana - Past Family History Mother Family Medical History: No Reported History Father Family Medical History: No Reported History General Exam Limitations: no limitations General appearance: alert, in no apparent distress Head exam: Present: atraumatic, normocephalic Eye exam: Present: normal appearance, PERRL ENT exam: Present: normal exam Neck exam: Present: normal inspection. Absent: tenderness, meningismus Respiratory exam: Present: normal lung sounds bilaterally. Absent: respiratory distress, wheezes Cardiovascular Exam: Present: regular rate, normal rhythm GI/Abdominal exam: Present: soft. Absent: distended, tenderness, guarding Rectal exam: Present: hemorrhoids (Nonbleeding, nonthrombosed, external) Extremities exam: Present: normal inspection, normal capillary refill Neurological exam: Present: alert, oriented X3, CN II-XII intact. Absent: motor sensory deficit Psychiatric exam: Present: normal affect, normal mood Skin exam: Present: warm, dry, intact. Absent: cyanosis, diaphoretic Course Vital Signs 07/22/21 11:55 Temperature 97.9 F Pulse Rate 103 H Respiratory 18 Rate Blood Pressure 114/78 O2 Sat by Pulse 97 Oximetry Medical Decision Making - Medical Decision Making 40-year-old female with external hemorrhoids, nonbleeding, nonthrombosed, will prescribe lidocaine and sitz bath as well as high-fiber diet. Disposition Clinical Impression: Hemorrhoids Disposition: HOME SELF-CARE Condition: Good Instructions (If sedation given, give patient instructions): Hemorrhoids (ED) Additional Instructions: Please eat a high-fiber diet predominately vegetables, take stool softeners as needed, Use Sitz bath Prescriptions: Lidocaine [Lidocaine Rectal Cream 5%] 28 gm TP TID #28 gram Is patient prescribed a controlled substance at d/c from ED?: No Referrals: Sam Gilmore MD [Primary Care Provider] - 1-2 days Time of Disposition: 12:53
== END 2021-07-22 13:05 | disposition home or self-care (01) ==
LOC: EC 11:50
DX: K64.4 Residual hemorrhoidal skin tags (principal); K21.9 Gastro-esophageal reflux disease without esophagitis; Z79.83 Long term (current) use of bisphosphonates

== ENCOUNTER 2021-10-27 08:24 | Emergency (ER) | payer OTHER ==
[2021-10-27 08:27] VITALS: BP 140/79; PULSE 77; RESP 18; TEMP 98.2
--- NOTE | 2021-10-27 08:58 | ED ---
ENT HPI - General Chief complaint: ENT Stated complaint: Ear pain Time Seen by Provider: 10/27/21 08:30 Source: patient, RN notes reviewed Mode of arrival: ambulatory Limitations: no limitations - History of Present Illness Initial comments: 40-year-old female presents emergency with chief complaint of left ear pain. Patient states that the pain is progressive worsening last 3 days for swollen states it hurts behind her ear. No fevers or chills. Patient denies any nasal congestion no cough or cold like symptoms otherwise patient has normal drug AL LERGIES. - Related Data Home Medications Medication Instructions Recorded Confirmed Cetirizine HCl 10 mg PO DAILY 05/18/21 06/30/21 Omeprazole 20 mg PO DAILY 05/18/21 06/30/21 Previous Rx's Medication Instructions Recorded Ciprofloxacin Ophth Soln [Ciloxan 2 drops RIGHT EYE Q4HR 5 Days #2.5 06/30/21 0.3% Ophth Soln] ml Ketorolac 0.5% Ophth Soln [Acular 1 drops RIGHT EYE QID 5 Days #3 ml 06/30/21 0.5%] Lidocaine [Lidocaine Rectal Cream 28 gm TP TID #28 gram 07/22/21 5%] Amoxic-Pot Clav 875-125Mg 1 tab PO Q12HR #20 tab 10/27/21 [Augmentin 875-125] Ofloxacin 0.3% Ophth Soln [Ocuflox 10 drops LEFT EAR BID #10 ml 10/27/21 Ophth Soln] Allergies Allergy/AdvReac Type Severity Reaction Status Date / Time No Known Allergies Allergy Verified 10/27/21 08:26 Review of Systems ROS Statement: Those systems with pertinent positive or pertinent negative responses have been documented in the HPI. ROS Other: All systems not noted in ROS Statement are negative. Past Medical History Past Medical History: GERD/Reflux, GI Bleed Additional Past Medical History / Comment(s): chronic back pain, carpal tunnel, itchiness of skin recently History of Any Multi-Drug Resistant Organisms: None Reported Past Surgical History: Section, Cholecystectomy, Orthopedic Surgery, Tubal Ligation Additional Past Surgical History / Comment(s): rt hip cyst and part of hip bone removed. C/S-3 Past Anesthesia/Blood Transfusion Reactions: No Reported Reaction, Motion Sickness Additional Past Anesthesia/Blood Transfusion Reaction / Comment(s): 2nd C/S difficulty breathing had epidural Past Psychological History: Anxiety Smoking Status: Never smoker Past Alcohol Use History: Occasional Past Drug Use History: Marijuana - Past Family History Mother Family Medical History: No Reported History Father Family Medical History: No Reported History General Exam Limitations: no limitations General appearance: alert, in no apparent distress Head exam: Present: atraumatic, normocephalic, normal inspection Eye exam: Present: normal appearance, PERRL, EOMI. Absent: scleral icterus, conjunctival injection, periorbital swelling ENT exam: Present: normal oropharynx, mucous membranes moist. Absent: TM's normal bilaterally, normal external ear exam (Erythema) Neck exam: Present: normal inspection, full ROM. Absent: tenderness, meningismus, lymphadenopathy Respiratory exam: Present: normal lung sounds bilaterally, prolonged expiratory. Absent: respiratory distress, wheezes, rales, rhonchi, stridor, decreased breath sounds Cardiovascular Exam: Present: regular rate, normal rhythm, normal heart sounds. Absent: systolic murmur, diastolic murmur, rubs, gallop, clicks Course Vital Signs 10/27/21 08:25 Temperature 98.2 F Pulse Rate 77 Respiratory 18 Rate Blood Pressure 140/79 O2 Sat by Pulse 98 Oximetry Medical Decision Making - Medical Decision Making 40-year-old presented for left ear pain. Patient does have swelling canal and which is difficult to exclude otitis media. Patient started on oral antibiotics and eardrops. Disposition Clinical Impression: Otitis externa Disposition: HOME SELF-CARE Condition: Stable Instructions (If sedation given, give patient instructions): Earache (ED) Additional Instructions: Please return to the Emergency Department if symptoms worsen or any other concerns. Prescriptions: Amoxic-Pot Clav 875-125Mg [Augmentin 875-125] 1 tab PO Q12HR #20 tab Ofloxacin 0.3% Ophth Soln [Ocuflox Ophth Soln] 10 drops LEFT EAR BID #10 ml Is patient prescribed a controlled substance at d/c from ED?: No Referrals: None,Stated [Primary Care Provider] - 1-2 days Time of Disposition: 08:57
== END 2021-10-27 09:10 | disposition home or self-care (01) ==
LOC: EC 08:24
DX: H60.92 Unspecified otitis externa, left ear (principal); K21.9 Gastro-esophageal reflux disease without esophagitis; Z79.899 Other long term (current) drug therapy
CPT/HCPCS: 99282

== ENCOUNTER 2021-10-28 03:18 | Emergency (ER) | payer OTHER ==
[2021-10-28] MEDS ORDERED: HYDROmorphone 1 MG/ML 1 ML SYRINGE IM STA (03:31)
[2021-10-28] MEDS ORDERED: ACET/COD 300 MG/30 MG STARTER PACK 6 TAB BTL PO STA (03:59)
--- NOTE | 2021-10-28 03:59 | ED ---
ENT HPI - General Chief complaint: ENT Stated complaint: Earache, revisit Time Seen by Provider: 10/28/21 03:26 Source: patient Mode of arrival: ambulatory - History of Present Illness Initial comments: Patient is a 40-year-old female presenting with chief complaint of left ear pain. Patient states pain initially started 4 days ago. She was seen here yesterday for the ear pain, she was given eardrops and oral antibiotics, was told to report back if symptoms worsen. Patient states that she is having severe pain today. She has been taking Motrin and Tylenol with no relief. There is some difficulty getting the eardrops into the ear, she states that often times they fall out. She denies any fever, chills, nausea, vomiting, neck pain or stiffness, vision or hearing changes, dizziness, headache, eye pain, chest pain, shortness of breath, , dysphagia. - Related Data Home Medications Medication Instructions Recorded Confirmed Cetirizine HCl 10 mg PO DAILY 05/18/21 06/30/21 Omeprazole 20 mg PO DAILY 05/18/21 06/30/21 Previous Rx's Medication Instructions Recorded Ciprofloxacin Ophth Soln [Ciloxan 2 drops RIGHT EYE Q4HR 5 Days #2.5 06/30/21 0.3% Ophth Soln] ml Ketorolac 0.5% Ophth Soln [Acular 1 drops RIGHT EYE QID 5 Days #3 ml 06/30/21 0.5%] Lidocaine [Lidocaine Rectal Cream 28 gm TP TID #28 gram 07/22/21 5%] Amoxic-Pot Clav 875-125Mg 1 tab PO Q12HR #20 tab 10/27/21 [Augmentin 875-125] Ofloxacin 0.3% Ophth Soln [Ocuflox 10 drops LEFT EAR BID #10 ml 10/27/21 Ophth Soln] Allergies Allergy/AdvReac Type Severity Reaction Status Date / Time No Known Allergies Allergy Verified 10/28/21 03:23 Review of Systems ROS Statement: Those systems with pertinent positive or pertinent negative responses have been documented in the HPI. ROS Other: All systems not noted in ROS Statement are negative. Past Medical History Past Medical History: GERD/Reflux, GI Bleed Additional Past Medical History / Comment(s): chronic back pain, carpal tunnel, itchiness of skin recently History of Any Multi-Drug Resistant Organisms: None Reported Past Surgical History: Section, Cholecystectomy, Orthopedic Surgery, Tubal Ligation Additional Past Surgical History / Comment(s): rt hip cyst and part of hip bone removed. C/S-3 Past Anesthesia/Blood Transfusion Reactions: No Reported Reaction, Motion Sickness Additional Past Anesthesia/Blood Transfusion Reaction / Comment(s): 2nd C/S difficulty breathing had epidural Past Psychological History: Anxiety Smoking Status: Never smoker Past Alcohol Use History: Occasional Past Drug Use History: Marijuana - Past Family History Mother Family Medical History: No Reported History Father Family Medical History: No Reported History General Exam Limitations: no limitations General appearance: alert, in no apparent distress Head exam: Present: atraumatic, normocephalic, normal inspection Eye exam: Present: normal appearance, EOMI. Absent: scleral icterus, periorbital swelling ENT exam: Present: normal oropharynx, mucous membranes moist Expanded TM/Canal exam: Erythema: Left TM, Canal Tenderness: Left TM (No mastoid tenderness or erythema) Neck exam: Present: normal inspection, full ROM Respiratory exam: Present: normal lung sounds bilaterally. Absent: respiratory distress, wheezes, rales, rhonchi, stridor Cardiovascular Exam: Present: regular rate, normal rhythm, normal heart sounds. Absent: systolic murmur, diastolic murmur, rubs, gallop, clicks Neurological exam: Present: alert, oriented X3, CN II-XII intact Psychiatric exam: Present: normal affect, normal mood Skin exam: Present: warm, dry, intact, normal color. Absent: rash Course Vital Signs 10/28/21 04:03 Temperature 98 F Pulse Rate 84 Respiratory 17 Rate Blood Pressure 121/69 O2 Sat by Pulse 98 Oximetry Medical Decision Making - Medical Decision Making Patient is a 40-year-old female recently diagnosed with and treated for otitis media and externa. Patient has been on antibiotics for one day. Reports back to ER for worsening ear pain. On examination there is no mastoid erythema or tenderness. No fever or chills. Patient is given pain medication. On examination there is significant swelling to the ear canal, difficulty viewing the tympanic membrane fully. Ear wick is placed. Patient is instructed to continue taking antibiotic medication. Follow-up with PCP. Report back to ER with any new or worsening symptoms. Discussed return parameters and answered all questions. Patient conveyed verbal understanding and agreed to the plan. I discussed this case in detail with my attending Dr. Mc Disposition Clinical Impression: Acute swimmer's ear, Otitis media Disposition: HOME SELF-CARE Condition: Good Instructions (If sedation given, give patient instructions): Earache (ED) Additional Instructions: Follow-up with PCP. Report back to ER with any new or worsening symptoms. Take Motrin and Tylenol as needed for pain. Do not combine [id number] Tylenol with Tylenol 3 Is patient prescribed a controlled substance at d/c from ED?: No Referrals: None,Stated [Primary Care Provider] - 1-2 days Time of Disposition: 03:59
[2021-10-28 04:04] VITALS: BP 121/69; PULSE 84; RESP 17; TEMP 98
== END 2021-10-28 04:12 | disposition home or self-care (01) ==
LOC: EC 03:18
DX: H60.332 Swimmer's ear, left ear (principal); K21.9 Gastro-esophageal reflux disease without esophagitis; F41.9 Anxiety disorder, unspecified; F12.90 Cannabis use, unspecified, uncomplicated; Z79.899 Other long term (current) drug therapy
CPT/HCPCS: 99282; 96372; J1170

== ENCOUNTER 2022-10-07 02:13 | Emergency (ER) | payer OTHER ==
[2022-10-07 02:46] VITALS: BP 133/96; PULSE 58; RESP 22; TEMP 97.9
[2022-10-07] MEDS ORDERED: methylPREDNISolone SOD SUCCI 125 MG/2 ML VIAL IV STA (02:46)
[2022-10-07] MEDS ORDERED: SODIUM CHLORIDE 0.9% 1,000 ML IV STA (02:46)
--- NOTE | 2022-10-07 04:34 | ED ---
General Adult HPI - General Chief complaint: Shortness of Breath Stated complaint: SOB Time Seen by Provider: 10/07/22 02:25 Source: patient Mode of arrival: wheelchair Limitations: no limitations - History of Present Illness Initial comments: 41-year-old female presenting with chief complaint of URI-like symptoms. Patient states that she developed a cough, congestion, and shortness of breath today. Cough is nonproductive. No fevers or chills. No nausea, vomiting, abdominal pain. No chest pain or palpitations. No lower extremity swelling. She admits to body aches and generalized weakness. - Related Data Home Medications Medication Instructions Recorded Confirmed Cetirizine HCl 10 mg PO DAILY 05/18/21 06/30/21 Omeprazole 20 mg PO DAILY 05/18/21 06/30/21 Previous Rx's Medication Instructions Recorded Ciprofloxacin Ophth Soln [Ciloxan 2 drops RIGHT EYE Q4HR 5 Days #2.5 06/30/21 0.3% Ophth Soln] ml Ketorolac 0.5% Ophth Soln [Acular 1 drops RIGHT EYE QID 5 Days #3 ml 06/30/21 0.5%] Lidocaine [Lidocaine Rectal Cream 28 gm TP TID #28 gram 07/22/21 5%] Amoxic-Pot Clav 875-125Mg 1 tab PO Q12HR #20 tab 10/27/21 [Augmentin 875-125] Ofloxacin 0.3% Ophth Soln [Ocuflox 10 drops LEFT EAR BID #10 ml 10/27/21 Ophth Soln] Allergies Allergy/AdvReac Type Severity Reaction Status Date / Time No Known Allergies Allergy Verified 10/07/22 02:17 Review of Systems ROS Statement: Those systems with pertinent positive or pertinent negative responses have been documented in the HPI. ROS Other: All systems not noted in ROS Statement are negative. Past Medical History Past Medical History: GERD/Reflux, GI Bleed Additional Past Medical History / Comment(s): chronic back pain, carpal tunnel, itchiness of skin recently History of Any Multi-Drug Resistant Organisms: None Reported Past Surgical History: Section, Cholecystectomy, Orthopedic Surgery, Tubal Ligation Additional Past Surgical History / Comment(s): rt hip cyst and part of hip bone removed. C/S-3 Past Anesthesia/Blood Transfusion Reactions: No Reported Reaction, Motion Sickness Additional Past Anesthesia/Blood Transfusion Reaction / Comment(s): 2nd C/S difficulty breathing had epidural Past Psychological History: Anxiety Smoking Status: Never smoker Past Alcohol Use History: Occasional Past Drug Use History: Marijuana - Past Family History Mother Family Medical History: No Reported History Father Family Medical History: No Reported History General Exam Limitations: no limitations General appearance: alert, in no apparent distress Head exam: Present: atraumatic, normocephalic, normal inspection Eye exam: Present: normal appearance, EOMI Neck exam: Present: normal inspection, full ROM Respiratory exam: Present: normal lung sounds bilaterally. Absent: respiratory distress, wheezes, rales, rhonchi, stridor Cardiovascular Exam: Present: regular rate, normal rhythm, normal heart sounds. Absent: systolic murmur, diastolic murmur, rubs, gallop, clicks Neurological exam: Present: alert, oriented X3, CN II-XII intact Psychiatric exam: Present: normal affect, normal mood Skin exam: Present: warm, dry, intact, normal color. Absent: rash Course Vital Signs 10/07/22 10/07/22 02:18 02:22 Temperature 98.8 F 97.9 F Pulse Rate 65 58 L Respiratory 18 22 Rate Blood Pressure 130/75 133/96 O2 Sat by Pulse 98 100 Oximetry EKG Findings - EKG Comments: EKG Findings:: Sinus bradycardia ventricular rate 52. IA interval 138. QRS 97. QTc 451. QTC 432. No ischemic changes. Normal axis. Medical Decision Making - Medical Decision Making Was pt. sent in by a medical professional or institution (, PA, BASKETBALL REFEREE, urgent care, hospital, or [facility]...) When possible be specific @ -No Did you speak to anyone other than the patient for history (EMS, parent, family, police, friend...)? What history was obtained from this source @ -No Did you review nursing and triage notes (agree or disagree)? Why? @ -I reviewed and agree with nursing and triage notes Were old charts reviewed (outside hosp., previous admission, EMS record, old EKG, old radiological studies, urgent care reports/EKG's, [facility] records)? Report findings @ -No old charts were reviewed Differential Diagnosis (chest pain, altered mental status, abdominal pain women, abdominal pain men, vaginal bleeding, weakness, fever, dyspnea, syncope, headache, dizziness, GI bleed, back pain, seizure, CVA, palpatations, mental health, musculoskeletal)? @ -MDM Differential Dyspnea: Coronary syndrome, arrhythmia, tamponade, asthma, COPD, pulmonary embolism, pneumonia, pneumothorax, pulmonary effusion, anaphylaxis, diabetic ketoacidosis, flailed chest, pulmonary contusion, diaphragmatic rupture, anemia, neuromuscular this is not meant to be an all-inclusive list. EKG interpreted by me (3pts min.). @ -As above X-rays interpreted by me (1pt min.). @ -No acute cardiopulmonary process CT interpreted by me (1pt min.). @ -None done U/S interpreted by me (1pt. min.). @ -None done What testing was considered but not performed or refused? (CT, X-rays, U/S, labs)? Why? @ -None What meds were considered but not given or refused? Why? @ -None Did you discuss the management of the patient with other professionals (professionals i.e. , PA, BASKETBALL REFEREE, lab, RT, psych nurse, social sciences research scientist, credit control assistant, teacher, school services officer, pillowcase maker)? Give summary @ -No Was smoking cessation discussed for >3mins.? @ -No Was critical care preformed (if so, how long)? @ -No Were there social determinants of health that impacted care today? How? (Homelessness, low income, unemployed, alcoholism, drug addiction, transportation, low edu. Level, literacy, decrease access to med. care, chcf, rehab)? @ -No Was there de-escalation of care discussed even if they declined (Discuss DNR or withdrawal of care, Hospice)? DNR status @ -No What co-morbidities impacted this encounter? (DM, HTN, Smoking, COPD, CAD, Cancer, CVA, ARF, Chemo, Hep., AIDS, mental health diagnosis, sleep apnea, morbid obesity)? @ -None Was patient admitted / discharged? Hospital course, mention meds given and route, prescriptions, significant lab abnormalities, going to OR and other pertinent info. @ -41-year-old female presenting with chief complaint of cough, congestion, shortness of breath. On physical examination heart and lungs are clear to auscultation. Patient is negative for influenza, RSV, and Covid. Negative chest x-ray. EKG shows no ischemic changes. Patient was found to have bed bugs, she was taken to the decontamination room. Symptoms are likely consistent with a URI. She is given one dose of Solu-Medrol here in the ER. Follow-up with PCP. Report back to ER with any new or worsening symptoms. Discussed return parameters and answered all questions. Patient conveyed verbal understanding and agreed to the plan. I discussed this case in detail with my attending Dr. Fung Undiagnosed new problem with uncertain prognosis? @ -No Drug Therapy requiring intensive monitoring for toxicity (Heparin, Nitro, Insulin, Cardizem)? @ -No Were any procedures done? @ -No Diagnosis/symptom? @ -URI, bedbugs Acute, or Chronic, or Acute on Chronic? @ -Acute Uncomplicated (without systemic symptoms) or Complicated (systemic symptoms)? @ -Uncomplicated Side effects of treatment? @ -No Exacerbation, Progression, or Severe Exacerbation? @ -No Poses a threat to life or bodily function? How? (Chest pain, [place], [place], pneumonia, PE, COPD, DKA, ARF, appy, cholecystitis, CVA, Diverticulitis, Homicidal, Suicidal, threat to staff... and all critical care pts) @ -No - Lab Data Lab Results 10/07/22 Range/Units 02:47 Influenza Type A (PCR) Not Detected (Not Detectd) Influenza Type B (PCR) Not Detected (Not Detectd) RSV (PCR) Not Detected (Not Detectd) SARS-CoV-2 (PCR) Not Detected (Not Detectd) Disposition Clinical Impression: URI (upper respiratory infection), Infestation by bed bug Disposition: HOME SELF-CARE Condition: Good Instructions (If sedation given, give patient instructions): Upper Respiratory Infection (ED), Bed Bugs (ED) Additional Instructions: Follow-up with PCP. Report back to ER if any new or worsening symptoms. Take Motrin and Tylenol as needed for any pain control. Is patient prescribed a controlled substance at d/c from ED?: No Referrals: Esther Zelaya MD [Primary Care Provider] - 1-2 days Time of Disposition: 04:33
--- NOTE | 2022-10-07 06:36 | XR ---
EXAMINATION TYPE: XR chest 2V DATE OF EXAM: 10/07/2022 3:37 AM COMPARISON: Chest radiographs from 05/18/2021 TECHNIQUE: XR chest 2V Frontal and lateral views of the chest. CLINICAL INDICATION:Female, 41 years old with history of difficulty breathing; FINDINGS: Lungs/Pleura: There is no evidence of pleural effusion, focal consolidation, or pneumothorax. Pulmonary vascularity: Unremarkable. Heart/mediastinum: Cardiomediastinal silhouette is unremarkable. Musculoskeletal: No acute osseous pathology. IMPRESSION: No acute cardiopulmonary disease/process.
== END 2022-10-07 05:10 | disposition home or self-care (01) ==
LOC: EC 02:13
DX: J06.9 Acute upper respiratory infection, unspecified (principal); K21.9 Gastro-esophageal reflux disease without esophagitis; F12.90 Cannabis use, unspecified, uncomplicated; Z86.59 Personal history of other mental and behavioral disorders; Z79.899 Other long term (current) drug therapy; Z90.49 Acquired absence of other specified parts of digestive tract; Z20.822 Contact with and (suspected) exposure to COVID-19; Z59.19 Other inadequate housing
CPT/HCPCS: 99285; 96374; 96361; 93005; 87636; 71046; J2930

== ENCOUNTER → 2024-05-01 | Outpatient (CLI) | payer OTHER ==
--- NOTE | 2024-05-01 15:46 | XR ---
EXAMINATION TYPE: XR lumbosacral spine min 4V DATE OF EXAM: 05/01/2024 CLINICAL INDICATION: Female, 43 years old with history of G89.29, M54.50, pain TECHNIQUE: Frontal, lateral, and oblique images of the lumbar spine are obtained. COMPARISON: None FINDINGS: There are 5 lumbar type vertebral bodies identified. The lumbar spine shows straightened alignment. Vertebral body heights and disc space height are within normal limits. Prominent spur or bony projection anterior superior L4 vertebra. The oblique images appear within normal limits. The overlying soft tissue appears unremarkable. IMPRESSION: As above. [facility], , 05/01/2024 3:44 PM
--- NOTE | 2024-05-01 15:48 | XR ---
EXAMINATION TYPE: XR sacroiliac joint comp BILAT DATE OF EXAM: 05/01/2024 3:39 PM COMPARISON: CT abdomen and pelvis April 09, 2020 CLINICAL INDICATION: Female, 43 years old with history of G89.29, M54.50; PHH, pain TECHNIQUE: The sacroiliac joints were examined in a frontal and oblique projections. FINDINGS: There is no evidence of fracture or dislocation. There is no soft tissue abnormality. No a bnormal calcifications are present. Sacroiliac joints are symmetric and felt within normal limits. IMPRESSION: No acute osseous pathology. [facility], , 05/01/2024 3:45 PM
== END | disposition home or self-care (01) ==
LOC: RADXRMAIN 14:51
PROVIDERS: ATTEND Family Medicine
DX: G89.29 Other chronic pain (principal); M54.50 Low back pain, unspecified
CPT/HCPCS: 72110; 72202

== ENCOUNTER 2024-06-01 02:11 | Emergency (ER) | payer OTHER ==
[2024-06-01 02:27] VITALS: RESP 18
--- NOTE | 2024-06-01 03:17 | ED ---
General Adult HPI - General Chief complaint: Upper Respiratory Infection Stated complaint: Difficulty Breathing, Cough Time Seen by Provider: 06/01/24 02:50 Source: patient, RN notes reviewed, old records reviewed Mode of arrival: ambulatory Limitations: no limitations - History of Present Illness Initial comments: Patient is a 43-year-old female presents emergency department complaining of URI symptoms. Has been going on for 2 to 3 weeks. Did initially get better then became sick again when her child became sick. Endorses a cough. Endorses chest congestion as well as rhinorrhea. Denies sore throat. Denies nausea or vomiting. Denies diarrhea. Denies chest pain. Denies abdominal pain. Denies any fevers. Does smoke marijuana but denies any other tobacco use history. No history of asthma. No significant past medical history overall. Presents for further evaluation at this time. - Related Data Home Medications Medication Instructions Recorded Confirmed Cetirizine HCl 10 mg PO DAILY 05/18/21 06/30/21 Omeprazole 20 mg PO DAILY 05/18/21 06/30/21 Previous Rx's Medication Instructions Recorded Ciprofloxacin Ophth Soln [Ciloxan 2 drops RIGHT EYE Q4HR 5 Days #2.5 06/30/21 0.3% Ophth Soln] ml Ketorolac 0.5% Ophth Soln [Acular 1 drops RIGHT EYE QID 5 Days #3 ml 06/30/21 0.5%] Lidocaine [Lidocaine Rectal Cream 28 gm TP TID #28 gram 07/22/21 5%] Amoxic-Pot Clav 875-125Mg 1 tab PO Q12HR #20 tab 10/27/21 [Augmentin 875-125] Ofloxacin 0.3% Ophth Soln [Ocuflox 10 drops LEFT EAR BID #10 ml 10/27/21 Ophth Soln] Albuterol Sulfate [Ventolin HFA] 1 - 2 puff INHALATION Q6H PRN #1 06/01/24 each predniSONE [Deltasone] 20 mg PO BID 4 Days #8 tab 06/01/24 Allergies Allergy/AdvReac Type Severity Reaction Status Date / Time No Known Allergies Allergy Verified 06/01/24 02:23 Review of Systems ROS Statement: Those systems with pertinent positive or pertinent negative responses have been documented in the HPI. Review of Systems: CONST: Denies fever EYES: Denies blurry vision ENT: Endorses nasal congestion, cough C/V: Denies Chest pain RESP: Denies shortness of breath GI: Denies abdominal pain : Denies dysuria SKIN: Denies rash. MSK: Denies joint pain. NEURO: Denies headache ROS Other: All systems not noted in ROS Statement are negative. Past Medical History Past Medical History: GERD/Reflux, GI Bleed Additional Past Medical History / Comment(s): chronic back pain, carpal tunnel, itchiness of skin recently History of Any Multi-Drug Resistant Organisms: None Reported Past Surgical History: Section, Cholecystectomy, Orthopedic Surgery, Tubal Ligation Additional Past Surgical History / Comment(s): rt hip cyst and part of hip bone removed. C/S-3 Past Anesthesia/Blood Transfusion Reactions: No Reported Reaction, Motion Sickness Additional Past Anesthesia/Blood Transfusion Reaction / Comment(s): 2nd C/S difficulty breathing had epidural Past Psychological History: Anxiety Smoking Status: Never smoker Past Alcohol Use History: Occasional Past Drug Use History: Marijuana - Past Family History Mother Family Medical History: No Reported History Father Family Medical History: No Reported History General Exam - General Exam Comments Initial Comments: General: Appears in no acute distress. HEAD: Normal with no signs of head trauma. EYES: EOMI ENT: Hearing grossly intact, normal oropharynx. RESPIRATORY: Bilateral end expiratory wheezing. No hypoxia. No increased work of breathing. C/V: Regular rate and rhythm. S1 and S2 auscultated, no edema, peripheral pulses 2+ and intact throughout ABD: Abd is soft, nontender, nondistended EXT: No obvious deformity SKIN: No rashes or lesions observed on exposed skin. NEURO: Alert and oriented x 4. Limitations: no limitations Course Vital Signs 06/01/24 06/01/24 06/01/24 02:24 04:02 04:12 Temperature 98.9 F Pulse Rate 107 H 98 95 Respiratory 18 18 18 Rate Blood Pressure 165/88 O2 Sat by Pulse 99 Oximetry Medical Decision Making - Medical Decision Making Was pt. sent in by a medical professional or institution (, PA, [employer]NE[employer]OUNTER, urgent care, hospital, or shelter...) When possible be specific @ -No Did you speak to anyone other than the patient for history (EMS, parent, family, police, friend...)? What history was obtained from this source @ -No Did you review nursing and triage notes (agree or disagree)? Why? @ -I reviewed and agree with nursing and triage notes Were old charts reviewed (outside hosp., previous admission, EMS record, old EKG, old radiological studies, urgent care reports/EKG's, shelter records)? Report findings @ -No old charts were reviewed Differential Diagnosis (chest pain, altered mental status, abdominal pain women, abdominal pain men, vaginal bleeding, weakness, fever, dyspnea, syncope, headache, dizziness, GI bleed, back pain, seizure, CVA, palpatations, mental health, musculoskeletal)? @ -COVID, flu, RSV, pneumonia. This list is not all inclusive. EKG interpreted by me (3pts min.). @ -None done X-rays interpreted by me (1pt min.). @ -X-ray shows no obvious acute cardiopulmonary process. CT interpreted by me (1pt min.). @ -None done U/S interpreted by me (1pt. min.). @ -None done What testing was considered but not performed or refused? (CT, X-rays, U/S, labs)? Why? @ -None What meds were considered but not given or refused? Why? @ -None Did you discuss the management of the patient with other professionals (professionals i.e. , PA, [employer] MOUNTER, lab, RT, psych nurse, social media strategist, smoking tobacco packing machine hand, teacher, chief media officer, business case analyst)? Give summary @ -No Was smoking cessation discussed for >3mins.? @ -No Was critical care preformed (if so, how long)? @ -No Were there social determinants of health that impacted care today? How? (Homelessness, low income, unemployed, alcoholism, drug addiction, transportation, low edu. Level, literacy, decrease access to med. care, detention, rehab)? @ -No Was there de-escalation of care discussed even if they declined (Discuss DNR or withdrawal of care, Hospice)? DNR status @ -No What co-morbidities impacted this encounter? (DM, HTN, Smoking, COPD, CAD, Cancer, CVA, ARF, Chemo, Hep., AIDS, mental health diagnosis, sleep apnea, morbid obesity)? @ -None Was patient admitted / discharged? Hospital course, mention meds given and route, prescriptions, significant lab abnormalities, going to OR and other pertinent info. @ -Based on the patient's presentation and physical exam, presents with what is likely some form of URI. He has wheezing with that as well and does smoke marijuana on a regular basis. May have a reactive airway component to it as well. Patient will be administered breathing treatment, oral steroid. We will obtain viral swabs and chest x-ray. Vitals are within acceptable limits. She was in agreement this plan. Viral swabs positive for influenza B infection. Chest x-ray shows no obvious acute cardiopulmonary process. I updated the patient. She is feeling improved. Discussed the results of her workup. She expressed understanding. Discussed that she does not meet criteria for antibiotics as she has a viral infection. She will be discharged with prednisone and albuterol inhaler. Strict return precautions discussed. I will provide the patient with a prescription for prednisone, albuterol inhaler. I instructed the patient to follow up with their PCP in the next 1-3 days.. I explained that the patient should return to the emergency department if they experience any worsening symptoms. Strict return precautions were discussed with the patient. The patient expressed understanding of these instructions. I answered all questions that the patient had. The patient was discharged home in good condition with their prescriptions and follow up information. Undiagnosed new problem with uncertain prognosis? @ -No Drug Therapy requiring intensive monitoring for toxicity (Heparin, Nitro, Insulin, Cardizem)? @ -No Were any procedures done? @ -No Diagnosis/symptom? @ -Influenza B infection Acute, or Chronic, or Acute on Chronic? @ -Acute Uncomplicated (without systemic symptoms) or Complicated (systemic symptoms)? @ -Uncomplicated Side effects of treatment? @ -None Exacerbation, Progression, or Severe Exacerbation] @ -No Poses a threat to life or bodily function? @ -Unlikely at this time - Lab Data Lab Results 06/01/24 Range/Units 02:55 Influenza Type A (PCR) Not Detected (Not Detectd) Influenza Type B (PCR) Detected A (Not Detectd) RSV (PCR) Not Detected (Not Detectd) SARS-CoV-2 (PCR) Not Detected (Not Detectd) Disposition Clinical Impression: Influenza B Disposition: HOME SELF-CARE Condition: Good Instructions (If sedation given, give patient instructions): Influenza (DC) Prescriptions: predniSONE [Deltasone] 20 mg PO BID 4 Days #8 tab Albuterol Sulfate [Ventolin HFA] 1 - 2 puff INHALATION Q6H PRN #1 each PRN Reason: Dyspnea Is patient prescribed a controlled substance at d/c from ED?: No Referrals: Esther Zelaya MD [Primary Care Provider] - 1-2 days Time of Disposition: 04:32
[2024-06-01] MEDS: predniSONE 20 MG TAB PO STA (03:27)
--- NOTE | 2024-06-01 03:46 | XR ---
EXAM: XR Chest, 2 Views CLINICAL HISTORY: ITS.REASON XR Reason: cough TECHNIQUE: Frontal and lateral views of the chest. COMPARISON: No relevant prior studies available. FINDINGS: Lungs: No consolidation or mass. Pleural space: No effusion. Heart: No cardiomegaly. Bones/joints: No acute findings. IMPRESSION: No acute cardiopulmonary process.
[2024-06-01 03:49] LABS: Influenza A Not Detected (Not Detectd); Influenza B Detected (Not Detectd); RSV Not Detected (Not Detectd)
[2024-06-01] MEDS: IPRATROPIUM-ALBUTEROL 3 ML NEB INHALATION STA (04:02)
[2024-06-01 05:24] VITALS: BP 147/63; PULSE 98; TEMP 99.1
== END 2024-06-01 05:24 | disposition home or self-care (01) ==
LOC: EC 02:11
DX: J10.1 Influenza due to other identified influenza virus with other respiratory manifestations (principal)
CPT/HCPCS: 94640; 87636; 71046; 99285; J7512